=== PATIENT | female | born 1955 | race Caucasian/White ===

== ENCOUNTER 2022-08-27 16:19 | Observation (INO) ==
--- NOTE | 2022-08-27 16:22 | ED.PDOC ---
General ED Provider: Dr. MARLENE MADISON MD Chief Complaint: Abnormal Labs Stated Complaint: Patient was seen today for routine medical encounter and laboratory studies. Her hemoglobin return at 5.4. She has no complaints. Denies melena or hematochezia. Time Seen by Provider: 08/27/22 16:20 Primary Care Provider: TENZIN HEBERT MD Nursing and Triage Documentation Reviewed and Agree: Yes Does patient meet sepsis criteria?: No System Inflammatory Response Syndrome: Not Applicable Sepsis Protocol: For patient's 13 years and over: Temp is 96.8 and below OR 101 and greater Pulse >90 BPM Resp >20/minute Acutely Altered Mental Status Are patient's symptoms suggestive of a new infection, such as: -Pneumonia -Skin, Soft Tissue -Endocarditis -UTI -Bone, Joint Infection -Implantable Device -Acute Abdominal Infection -Wound Infection -Meningitis -Blood Stream Catheter Infection -Unknown Review of Systems Review Of Systems Constitutional: Reports No symptoms Eyes: Reports No symptoms Ears, Nose, Mouth, Throat: Reports No symptoms Respiratory: Reports No symptoms Cardiac: Reports No symptoms GI: Reports No symptoms : Reports No symptoms Musculoskeletal: Reports No symptoms Skin: Reports No symptoms Neurological: Reports No symptoms Endocrine: Reports No symptoms Hematologic/Lymphatic: Reports No symptoms All Other Systems: Reviewed and Negative [facility] Medical History Breast cancer in female Chronic obstructive pulmonary disease Subacute cough Family History Mother Adverse anesthesia outcome Cancer Hypertension FATHER Alcoholism Lipids abnormal Cancer SISTER Cancer Social History Smoking and tobacco status: Current every day smoker Quit status: considering quitting Alcohol intake: never Substance use type: marijuana Makayla/christianity: RASTAFARIAN Special makayla needs: No Agree to transfusion: Yes Adopted: No Caregiver/support person: No Foster care: No Household members: spouse and children Housing: house Lives independently: Yes Daycare: no daycare Number of children: 1 Number of grandchildren: 4 Highest education level completed: some college, no degree Financial difficulty paying for basics: not very hard service: No FDC: No Current occupational status: retired Current occupational exposures/hazards: No Pets and animals: No Leisure activites: music, games and other History of recent travel: No Sexually active: No Do you think of yourself as: straight/heterosexual Current gender identity: female Seatbelt use: always Helmet use: No Drives intoxicated or rides with intoxicated stacker driver: No Water heater temperature set < 120 degrees: Yes Working smoke detector in home: Yes Fire extinguisher in home: Yes Carbon monoxide detector in home: Yes Firearms in home: No Surgical History cervical shoulder Status post appendectomy Physical Exam Physical Exam Appearance: Reports No pain distress, Thin and Other (Patient is alert, oriented and in NAD. She is pale. Patient appears chronically ill and older than her stated age.) Ill-appearing: Mild Pain Distress: None Eyes: Reports Not Examined ENT: Reports Nose normal and Oropharynx normal Neck: Supple Respiratory: Reports Airway patent, Breath sounds clear, Breath sounds equal and Breath sounds diminished Cardiovascular: Reports RRR, No rub and No murmur GI/: Reports Soft, Nontender, No masses, Bowel sounds normal, No Organomegaly and Other (Rectal vault empty. Small amount of brown colored stool submitted for HOC. No palpable abnormality.) Musculoskeletal: Reports Normal strength, ROM intact and No edema Skin: Reports Warm, Dry and Pale Neurological: Reports Alert and Oriented Psychiatric: Reports Affect appropriate and Mood appropriate Critical Care Note Critical Care Note Total Critical Care Time (mins): 0 Course Course Hematology/Chemistry: 08/27/22 16:37 08/27/22 16:37 Orders, Labs, Meds: Lab Review 08/27/22 08/27/22 08/27/22 16:37 16:37 16:37 WBC 5.00 RBC 2.97 L Hgb 5.7 L* Hct 20.7 L MCV 69.7 L MCH 19.2 L MCHC 27.5 L RDW Coeff of Tracee 21.3 H Plt Count 264 Immature Gran % (Auto) 0.4 Neut % (Auto) 61.4 Lymph % (Auto) 25.2 [place] % (Auto) 8.8 Eos % (Auto) 2.8 Baso % (Auto) 1.4 Neut # (Auto) 3.1 Lymph # (Auto) 1.3 [place] # (Auto) 0.4 Eos # (Auto) 0.1 Baso # (Auto) 0.1 Immature Gran # (Auto) 0.0 Hypochromasia 2+ Anisocytosis 3+ Microcytosis 1+ Sodium 136.1 Potassium 4.18 Chloride 107.9 H Carbon Dioxide 21.0 L Anion Gap 11.38 BUN 18.3 H Creatinine 0.74 Estimated GFR (MDRD) 79.00 BUN/Creatinine Ratio 24.72 Glucose 100.2 Calcium 8.84 Iron 18.1 L TIBC 541 H % Saturation 3 Total Bilirubin 0.39 AST 23.7 ALT 13.8 Alkaline Phosphatase 114.3 Total Protein 7.87 Albumin 4.70 Globulin 3.17 Albumin/Globulin Ratio 1.48 Stl Occult Blood (IFOB) Stool Occult Blood #2 Stool Occult Blood #3 08/27/22 16:56 WBC RBC Hgb Hct MCV MCH MCHC RDW Coeff of Tracee Plt Count Immature Gran % (Auto) Neut % (Auto) Lymph % (Auto) [place] % (Auto) Eos % (Auto) Baso % (Auto) Neut # (Auto) Lymph # (Auto) [place] # (Auto) Eos # (Auto) Baso # (Auto) Immature Gran # (Auto) Hypochromasia Anisocytosis Microcytosis Sodium Potassium Chloride Carbon Dioxide Anion Gap BUN Creatinine Estimated GFR (MDRD) BUN/Creatinine Ratio Glucose Calcium Iron TIBC % Saturation Total Bilirubin AST ALT Alkaline Phosphatase Total Protein Albumin Globulin Albumin/Globulin Ratio Stl Occult Blood (IFOB) Negative Stool Occult Blood #2 Pending Stool Occult Blood #3 Pending Orders Category Date Time Status CBC W/ AUTO DIFF Stat LAB 08/27/22 16:37 Completed CMP [COMPREHENSIVE METABOLIC PANEL] Stat LAB 08/27/22 16:37 Completed IRON AND TIBC Stat LAB 08/27/22 16:37 Completed OCCULT BLOOD, STOOL Stat LAB 08/27/22 16:56 Results RBC MORPHOLOGY Stat LAB 08/27/22 16:37 Completed TYPE AND SCREEN Stat LAB 08/27/22 16:37 Received URINALYSIS C & S IF INDICATED Stat LAB 08/27/22 16:22 Uncollected Vital Signs: Temp Pulse Resp BP Pulse Ox 08/27/22 16:19 98.0 F 92 16 126/73 100 Discharge Plan Discharge Patient Disposition: PLACED OBSERVATION Discharge Problem: Iron deficiency anemia Prescriptions: No Action cetirizine [Zyrtec] 10 mg tablet 10 mg PO QDAY Qty: 90 0RF rosuvastatin 10 mg tablet 10 mg PO QDAY Qty: 90 2RF losartan 50 mg tablet 50 mg PO QDAY Qty: 90 2RF Rx Instructions: needs appt and labs diphenhydramine-acetaminophen [Tylenol PM Extra Strength] 25-500 mg tablet 1 tab PO QHS PRN (Reason: Pain) fluticasone propionate 50 mcg/actuation spray,suspension 1 spray intranasal BID Qty: 15.8 3RF Rx Instructions: administer into each nostril albuterol sulfate [ProAir HFA] 90 mcg/actuation HFA aerosol inhaler 2 puff inhalation .q 4 hour PRN (Reason: cough) Qty: 18 2RF Atrovent HFA 17 mcg/actuation HFA aerosol inhaler 2 puff inhalation Q8H Qty: 12.9 1RF Did you review [place] CURING BIN OPERATOR for ALL controlled substances?: Not Applicable ED Provider: MARLENE MADISON Condition: Stable Physician Progress Note: []
[2022-08-27 16:58] LABS: BASOPHILS # (AUTO) 0.1 K/uL (0-0.2); BASOPHILS % (AUTO) 1.4 % (0.0-3.0); EOSINOPHILS # (AUTO) 0.1 K/ul (0.0-0.7); EOSINOPHILS % (AUTO) 2.8 % (0.0-7.0); HEMATOCRIT 20.7 % (37.0-47.0); IMMATURE GRANULOCYTE % (AUTO) 0.4 % (0.0-5.0); LYMPHOCYTES # (AUTO) 1.3 K/uL (0.60-3.4); LYMPHOCYTES % (AUTO) 25.2 (10.0-50.0); MEAN CORPUSCULAR HEMOGLOBIN 19.2 pg (27.0-31.0); MEAN CORPUSCULAR HGB CONC 27.5 (31.8-35.4); MEAN CORPUSCULAR VOLUME 69.7 fl (81.0-99.0); MONOCYTES # (AUTO) 0.4 K/uL (0.4-2.0); MONOCYTES % (AUTO) 8.8 (0-10); NEUTROPHILS # (AUTO) 3.1 K/ul (2.0-6.9); NEUTROPHILS % (AUTO) 61.4 % (42.2-75.2); PLATELET COUNT 264 10^3/uL (140-440); RDW COEFFICIENT OF VARIATION 21.3 % (11.6-14.8); RED BLOOD COUNT 2.97 10^6/ul (4.20-5.40)
[2022-08-27 17:03] LABS: ALANINE AMINOTRANSFERASE 13.8 U/L (0-35); ALBUMIN 4.7 g/dL (3.5-5.0); ALKALINE PHOSPHATASE 114.3 U/L (53-141); ASPARTATE AMINO TRANSFERASE 23.7 U/L (14-36); BILIRUBIN,TOTAL 0.39 mg/dL (0.2-1.3); BLOOD UREA NITROGEN 18.3 mg/dL (7-17); CALCIUM 8.84 mg/dL (8.4-10.2); CHLORIDE 107.9 mmol/L (98-107); CREATININE 0.74 mg/dL (0.60-1.30); GLUCOSE 100.2 mg/dL (74-106); POTASSIUM 4.18 mmol/L (3.5-5.1); SODIUM 136.1 mmol/L (134.5-145); TOTAL PROTEIN 7.87 g/dL (6.3-8.2)
[2022-08-27 17:04] LABS: HEMOGLOBIN 5.7 g/dl (12.0-16.0)
[2022-08-27 17:05] LABS: ANISOCYTOSIS 3+ (NOT PRESENT); HYPOCHROMASIA 2+ (NOT PRESENT)
[2022-08-27 17:06] LABS: MICROCYTOSIS 1+ (NOT PRESENT)
[2022-08-27 17:15] LABS: IRON 18.1 ug/dL (37-170)
[2022-08-27 17:16] LABS: OCCULT BLOOD SAMPLE 1 NEGATIVE (NEGATIVE)
--- NOTE | 2022-08-27 17:34 | PCM ---
Chief Complaint Chief Complaint: low hemoglobin History of Present Illness History of Present Illness: Patient seen today for routine encounter and labs. Her hemoglobin returned 5.4. She is asymptomatic with regard to the anemia. Patient denies abdominal pain, melena, constipation or hematochezia. Review of Systems Constitutional: Reports No symptoms Eyes: Reports No symptoms Ears: Reports No symptoms Nose: Reports No symptoms Throat: Reports No symptoms Mouth: Reports No symptoms Respiratory: Reports No symptoms Cardiovascular: Reports No symptoms Gastrointestinal: Reports No symptoms Genitourinary: Reports No symptoms Neurological: Reports No symptoms Musculoskeletal: Reports No symptoms Skin: Reports No symptoms Immunology: Reports No symptoms Hematology: Reports No symptoms Endocrine: Reports No symptoms Psychiatric: Reports No symptoms Habits: Reports Tobacco use Allergies Allergies Allergy/AdvReac Type Severity Reaction Status Date / Time No Known Allergies Allergy Verified 08/27/22 16:27 [facility] Medical History (Updated 08/27/22 @ 17:32 by MARLENE MADISON MD) Breast cancer in female Chronic obstructive pulmonary disease Subacute cough Surgical History cervical shoulder Status post appendectomy Family History Mother Adverse anesthesia outcome Cancer Hypertension FATHER Alcoholism Lipids abnormal Cancer SISTER Cancer Social History Smoking and tobacco status: Current every day smoker Quit status: considering quitting Alcohol intake: never Substance use type: marijuana Makayla/methodist: HOAHAOISM Special makayla needs: No Agree to transfusion: Yes Adopted: No Caregiver/support person: No Foster care: No Household members: spouse and children Housing: house Lives independently: Yes Daycare: no daycare Number of children: 1 Number of grandchildren: 4 Highest education level completed: some college, no degree Financial difficulty paying for basics: not very hard service: No correction: No Current occupational status: retired Current occupational exposures/hazards: No Pets and animals: No Leisure activites: music, games and other History of recent travel: No Sexually active: No Do you think of yourself as: straight/heterosexual Current gender identity: female Seatbelt use: always Helmet use: No Drives intoxicated or rides with intoxicated driver's license reviewing officer: No Water heater temperature set < 120 degrees: Yes Working smoke detector in home: Yes Fire extinguisher in home: Yes Carbon monoxide detector in home: Yes Firearms in home: No Body Composition Height: 5 ft 3 in Weight: 65.317 kg Body Mass Index (BMI): 25.4 Vital Signs Temperature: 98.0 F Pulse Rate: 92 Respiratory Rate: 16 Blood Pressure: 126/73 O2 Sat by Pulse Oximetry: 100 Physical Examination Appearance: Reports Well-appearing, No pain distress and Thin Ill-appearing: None Pain Distress: None Eyes: Reports ALYSHA and EOMI ENT: Reports Nose normal and Oropharynx normal Neck: Supple Respiratory: Reports Airway patent, Breath sounds clear, Breath sounds equal and Breath sounds diminished Cardiovascular: Reports RRR, No rub and No murmur GI/: Reports Soft, Nontender, No masses, Bowel sounds normal, No Organomegaly and Other (Rectal vault empty. No palpable abnormality.) Musculoskeletal: Reports Normal strength, ROM intact and No edema Skin: Reports Warm, Dry and Pale Neurological: Reports Sensation intact, Motor intact, Alert and Oriented Psychiatric: Reports Affect appropriate and Mood appropriate Lab/Tests/Diagnostic Imaging Lab/Tests/Diagnostic Imaging: Lab Review 08/27/22 08/27/22 08/27/22 16:37 16:37 16:37 WBC 5.00 RBC 2.97 L Hgb 5.7 L* Hct 20.7 L MCV 69.7 L MCH 19.2 L MCHC 27.5 L RDW Coeff of Tracee 21.3 H Plt Count 264 Immature Gran % (Auto) 0.4 Neut % (Auto) 61.4 Lymph % (Auto) 25.2 [place] % (Auto) 8.8 Eos % (Auto) 2.8 Baso % (Auto) 1.4 Neut # (Auto) 3.1 Lymph # (Auto) 1.3 [place] # (Auto) 0.4 Eos # (Auto) 0.1 Baso # (Auto) 0.1 Immature Gran # (Auto) 0.0 Hypochromasia 2+ Anisocytosis 3+ Microcytosis 1+ Sodium 136.1 Potassium 4.18 Chloride 107.9 H Carbon Dioxide 21.0 L Anion Gap 11.38 BUN 18.3 H Creatinine 0.74 Estimated GFR (MDRD) 79.00 BUN/Creatinine Ratio 24.72 Glucose 100.2 Calcium 8.84 Iron 18.1 L TIBC 541 H % Saturation 3 Total Bilirubin 0.39 AST 23.7 ALT 13.8 Alkaline Phosphatase 114.3 Total Protein 7.87 Albumin 4.70 Globulin 3.17 Albumin/Globulin Ratio 1.48 Stl Occult Blood (IFOB) Stool Occult Blood #2 Stool Occult Blood #3 08/27/22 16:56 WBC RBC Hgb Hct MCV MCH MCHC RDW Coeff of Tracee Plt Count Immature Gran % (Auto) Neut % (Auto) Lymph % (Auto) [place] % (Auto) Eos % (Auto) Baso % (Auto) Neut # (Auto) Lymph # (Auto) [place] # (Auto) Eos # (Auto) Baso # (Auto) Immature Gran # (Auto) Hypochromasia Anisocytosis Microcytosis Sodium Potassium Chloride Carbon Dioxide Anion Gap BUN Creatinine Estimated GFR (MDRD) BUN/Creatinine Ratio Glucose Calcium Iron TIBC % Saturation Total Bilirubin AST ALT Alkaline Phosphatase Total Protein Albumin Globulin Albumin/Globulin Ratio Stl Occult Blood (IFOB) Negative Stool Occult Blood #2 Pending Stool Occult Blood #3 Pending Orders Category Date Time Status CBC W/ AUTO DIFF Stat LAB 08/27/22 16:37 Completed CMP [COMPREHENSIVE METABOLIC PANEL] Stat LAB 08/27/22 16:37 Completed IRON AND TIBC Stat LAB 08/27/22 16:37 Completed OCCULT BLOOD, STOOL Stat LAB 08/27/22 16:56 Results RBC MORPHOLOGY Stat LAB 08/27/22 16:37 Completed TYPE AND SCREEN Stat LAB 08/27/22 16:37 Received URINALYSIS C & S IF INDICATED Stat LAB 08/27/22 16:22 Uncollected Assessment (1) Iron deficiency anemia: Status: Acute Code(s): D50.9 - Iron deficiency anemia, unspecified SNOMED Code(s): 99211179 Assessment: Admission hemoglobin level was 5.4. Patient will require further evaluation to determine the etiology of her anemia. Will place on iron supplement. Transfuse PRBCs. (2) Chronic obstructive pulmonary disease: Status: Acute Code(s): J44.9 - Chronic obstructive pulmonary disease, unspecified SNOMED Code(s): 57179474 (3) Essential hypertension: Status: Acute Code(s): I10 - Essential (primary) hypertension SNOMED Code(s): 13362901 Plan Plan: Transfuse PRBCs. Iron supplement.
[2022-08-27] MEDS ORDERED: PROAIR HFA (SINGLE PATIENT USE) IH PRN (17:49)
[2022-08-27] MEDS ORDERED: BENADRYL PO PRN (17:54)
[2022-08-27] MEDS ORDERED: ATROVENT HFA INHALER (SINGLE PATIENT USE) IH SCH ×2 (18:00→21:30)
[2022-08-27] MEDS ORDERED: LIDOCAINE HCL 1% SDV SUBCUT STA (18:05)
[2022-08-27] MEDS ORDERED: VENTOLIN HFA (PER PUFF-WITH SPACER) IH PRN ×2 (18:23→21:19)
[2022-08-27] MEDS: ATROVENT HFA INHALER (PER PUFF-WITH SPACER) IH SCH ×2 (18:33→21:10)
[2022-08-27 18:36] LABS: BILIRUBIN,URINE Negative (NEGATIVE); CLARITY,URINE Clear (CLEAR); COLOR,URINE Yellow (YELLOW); GLUCOSE, URINE (UA) Negative (NEGATIVE); KETONES,URINE Negative (NEGATIVE); LEUKOCYTE ESTERASE ,URINE 1+ (NEGATIVE); NITRITE,URINE Negative (NEGATIVE); PH,URINE 5.5 (5-9); PROTEIN,URINE Negative (NEGATIVE); URINE, BLOOD Negative (NEGATIVE); UROBILINOGEN,URINE 0.2 (0.2)
[2022-08-27 18:38] LABS: BACTERIA,URINE 1+ (NOT PRESENT)
[2022-08-27 18:41] LABS: SARS COV-2 RNA RAPID NAAT NEGATIVE (NEGATIVE)
[2022-08-27] MEDS: LEVAQUIN 750 MG/150 ML D5W 750 MG/150 ML BAG IV SCH (18:53)
[2022-08-27 20:57] VITALS: BMI 25.0
[2022-08-27] MEDS ORDERED: NON-FORMULARY MEDICATION (Diphenhydramine-Acetaminophen [Tylenol Pm Extra Strength] 25-500 PO PRN (21:19)
[2022-08-27] MEDS ORDERED: COZAAR PO SCH (21:30)
[2022-08-27] MEDS ORDERED: CRESTOR PO SCH (21:30)
[2022-08-27] MEDS ORDERED: ATROVENT HFA INHALER (PER PUFF-WITH SPACER) IH SCH (22:00)
[2022-08-27] MEDS: NICODERM 21 MG TD SCH (22:27)
[2022-08-28 04:37] LABS: BASOPHILS # (AUTO) 0.1 K/uL (0-0.2); BASOPHILS % (AUTO) 1.1 % (0.0-3.0); EOSINOPHILS # (AUTO) 0.1 K/ul (0.0-0.7); EOSINOPHILS % (AUTO) 2.6 % (0.0-7.0); HEMATOCRIT 27.5 % (37.0-47.0); HEMOGLOBIN 8.1 g/dl (12.0-16.0); IMMATURE GRANULOCYTE % (AUTO) 0.4 % (0.0-5.0); LYMPHOCYTES # (AUTO) 1.1 K/uL (0.60-3.4); LYMPHOCYTES % (AUTO) 20.8 (10.0-50.0); MEAN CORPUSCULAR HEMOGLOBIN 22.1 pg (27.0-31.0); MEAN CORPUSCULAR HGB CONC 29.5 (31.8-35.4); MEAN CORPUSCULAR VOLUME 75.1 fl (81.0-99.0); MONOCYTES # (AUTO) 0.6 K/uL (0.4-2.0); MONOCYTES % (AUTO) 11.1 (0-10); NEUTROPHILS # (AUTO) 3.5 K/ul (2.0-6.9); PLATELET COUNT 201 10^3/uL (140-440); RDW COEFFICIENT OF VARIATION 22.3 % (11.6-14.8); RED BLOOD COUNT 3.66 10^6/ul (4.20-5.40); WHITE BLOOD COUNT 5.49 K/ul (4.6-10.2)
[2022-08-28 04:49] LABS: ALANINE AMINOTRANSFERASE 12.4 U/L (0-35); ASPARTATE AMINO TRANSFERASE 24.3 U/L (14-36); BILIRUBIN,TOTAL 0.45 mg/dL (0.2-1.3); BLOOD UREA NITROGEN 15.3 mg/dL (7-17); CALCIUM 8.6 mg/dL (8.4-10.2); CARBON DIOXIDE 21.1 mmol/L (22-30.0); CHLORIDE 112.3 mmol/L (98-107); CREATININE 0.69 mg/dL (0.60-1.30); GLUCOSE 95.4 mg/dL (74-106); POTASSIUM 4.06 mmol/L (3.5-5.1); SODIUM 138.1 mmol/L (134.5-145); TOTAL PROTEIN 6.92 g/dL (6.3-8.2)
[2022-08-28 05:00] LABS: ANISOCYTOSIS 1+ (NOT PRESENT); HYPOCHROMASIA 1+ (NOT PRESENT)
[2022-08-28 05:01] LABS: SPHEROCYTES 1+ (NOT PRESENT)
[2022-08-28] MEDS: ATROVENT HFA INHALER (PER PUFF-WITH SPACER) IH SCH ×3 (05:19→21:01)
[2022-08-28] MEDS ORDERED: BENADRYL PO PRN (07:30)
[2022-08-28] MEDS: FLONASE NAS SCH ×2 (08:14→21:41)
[2022-08-28] MEDS: COZAAR PO SCH (08:14)
[2022-08-28] MEDS: CLARITIN PO SCH (08:14)
[2022-08-28] MEDS: LEVAQUIN 750 MG/150 ML D5W 750 MG/150 ML BAG IV SCH (08:15)
[2022-08-28] MEDS: NICODERM 21 MG TD SCH (08:15)
[2022-08-28] MEDS ORDERED: ZYRTEC PO SCH (09:00)
[2022-08-28] MEDS ORDERED: VENOFER 300 MG in SODIUM CHLORIDE 250 ML IV ONE (09:55)
--- NOTE | 2022-08-28 09:59 | PCM.PROG ---
Date Seen by Provider: 08/28/22 Time Seen by Provider: 09:57 Subjective: i feel better--no new nursing staff concerns--she denies any melena Objective: Vitals: T=98.2 F, P=75, R=16, EZ=479/83, SPO2=98 HEENT: [] Neck: [supple] Lungs: [clear] CVS: [rrr] Abdomen: soft nt[] Extremities: [] Neurological: [intact] Skin: [] Lab/Tests/Diagnostic Imaging: [] (1) Iron deficiency anemia: Status: Acute Code(s): D50.9 - Iron deficiency anemia, unspecified SNOMED Code(s): 62846996 (2) Chronic obstructive pulmonary disease: Status: Acute Code(s): J44.9 - Chronic obstructive pulmonary disease, unspecified SNOMED Code(s): 66325052 (3) Essential hypertension: Status: Acute Code(s): I10 - Essential (primary) hypertension SNOMED Code(s): 84395292 Plan: she states sheis feeling better---note iron and iron stores---will give iron today--check cbc in am--?home tomorrow?
[2022-08-29 05:10] VITALS: TEMP 97.3
[2022-08-29 05:15] VITALS: BP 125/71
[2022-08-29 05:34] LABS: BASOPHILS # (AUTO) 0.1 K/uL (0-0.2); BASOPHILS % (AUTO) 1.2 % (0.0-3.0); EOSINOPHILS # (AUTO) 0.2 K/ul (0.0-0.7); EOSINOPHILS % (AUTO) 3.4 % (0.0-7.0); HEMATOCRIT 27.9 % (37.0-47.0); HEMOGLOBIN 8.3 g/dl (12.0-16.0); IMMATURE GRANULOCYTE % (AUTO) 0.3 % (0.0-5.0); LYMPHOCYTES # (AUTO) 1.3 K/uL (0.60-3.4); LYMPHOCYTES % (AUTO) 21.5 (10.0-50.0); MEAN CORPUSCULAR HEMOGLOBIN 21.9 pg (27.0-31.0); MEAN CORPUSCULAR HGB CONC 29.7 (31.8-35.4); MEAN CORPUSCULAR VOLUME 73.6 fl (81.0-99.0); MONOCYTES # (AUTO) 0.7 K/uL (0.4-2.0); MONOCYTES % (AUTO) 11.4 (0-10); NEUTROPHILS # (AUTO) 3.6 K/ul (2.0-6.9); NEUTROPHILS % (AUTO) 62.2 % (42.2-75.2); PLATELET COUNT 215 10^3/uL (140-440); RDW COEFFICIENT OF VARIATION 22.3 % (11.6-14.8); RED BLOOD COUNT 3.79 10^6/ul (4.20-5.40); WHITE BLOOD COUNT 5.81 K/ul (4.6-10.2)
[2022-08-29] MEDS: ATROVENT HFA INHALER (PER PUFF-WITH SPACER) IH SCH (05:47)
[2022-08-29 05:49] LABS: BLOOD UREA NITROGEN 7.3 mg/dL (7-17); CALCIUM 8.88 mg/dL (8.4-10.2); CARBON DIOXIDE 21.7 mmol/L (22-30.0); CHLORIDE 112.6 mmol/L (98-107); CREATININE 0.59 mg/dL (0.60-1.30); GLUCOSE 98.3 mg/dL (74-106); POTASSIUM 3.69 mmol/L (3.5-5.1); SODIUM 139.8 mmol/L (134.5-145)
[2022-08-29 05:50] LABS: HYPOCHROMASIA 1+ (NOT PRESENT)
[2022-08-29 05:51] LABS: ANISOCYTOSIS 1+ (NOT PRESENT)
--- NOTE | 2022-08-29 07:37 | PCM.PROG ---
Date Seen by Provider: 08/29/22 Time Seen by Provider: 07:35 Subjective: she denies any melena---no nursing staff concerns Objective: Vitals: T=97.3 F, P=77, R=18, ZN=188/71, SPO2=95 HEENT: [] Neck: [supple] Lungs: [clear] CVS: [rrr] Abdomen: [soft nt] Extremities: [] Neurological: iontact Skin: [] Lab/Tests/Diagnostic Imaging: [] (1) Iron deficiency anemia: Status: Acute Code(s): D50.9 - Iron deficiency anemia, unspecified SNOMED Code(s): 56559741 (2) Chronic obstructive pulmonary disease: Status: Acute Code(s): J44.9 - Chronic obstructive pulmonary disease, unspecified SNOMED Code(s): 75604270 (3) Essential hypertension: Status: Acute Code(s): I10 - Essential (primary) hypertension SNOMED Code(s): 70568756 Plan: her hgb is up to 8.3---i feel she is stable to see her pcp this week and pursue causes of her iron def anemia---will dicharge will oral iron and see dr fuchs this week
--- NOTE | 2022-08-29 07:40 | PCM.DC ---
Final Diagnosis: iron def anemia Physical Exam Appearance: Well-appearing Ill-appearing: None Pain Distress: None Eyes: ALYSHA, EOMI and Conjunctiva clear ENT: Ears normal, Nose normal and Oropharynx normal Neck: Supple Respiratory: Airway patent, Breath sounds clear and Breath sounds equal Cardiovascular: RRR, Pulses normal, No rub and No murmur GI/: Soft, Nontender, No masses and Bowel sounds normal Musculoskeletal: Normal strength, ROM intact and No edema Skin: Warm, Dry and Normal color Neurological: Sensation intact, Motor intact, Reflexes intact, Cranial nerves intact, Alert and Oriented Psychiatric: Affect appropriate and Mood appropriate (1) Iron deficiency anemia: Status: Acute Code(s): D50.9 - Iron deficiency anemia, unspecified SNOMED Code(s): 80995910 (2) Chronic obstructive pulmonary disease: Status: Acute Code(s): J44.9 - Chronic obstructive pulmonary disease, unspecified SNOMED Code(s): 53357547 (3) Essential hypertension: Status: Acute Code(s): I10 - Essential (primary) hypertension SNOMED Code(s): 89371729 Reason for Hospitalization: profound anemia Prognosis/Condition at Discharge: fair Medications at Discharge: home meds plus fe so4 325 bid Lab/Diagnostics: hbg up to 8.3 Follow-ups: see dr fuchs this week Discharge Disposition: Home Hospital Course: she did well during her hospitalization---no dark stools... stool for occult blood is negative---she denies any sob or cough Plan: discharge home with oral iron---follow up with dr fuchs this week
[2022-08-29] MEDS: FLONASE NAS SCH (08:11)
[2022-08-29] MEDS: LEVAQUIN 750 MG/150 ML D5W 750 MG/150 ML BAG IV SCH (08:11)
[2022-08-29] MEDS: COZAAR PO SCH (08:13)
[2022-08-29] MEDS: CLARITIN PO SCH (08:13)
[2022-08-29] MEDS: NICODERM 21 MG TD SCH (08:14)
== END 2022-08-29 10:40 | disposition home or self-care (01) ==
LOC: ED 16:19 → MEDSURG A 16:19
PROVIDERS: ADMIT Surgery; ATTEND Family Medicine
DX: F17.210 Nicotine dependence, cigarettes, uncomplicated; I10 Essential (primary) hypertension; R05.2 Subacute cough; D50.9 Iron deficiency anemia, unspecified; K76.89 Other specified diseases of liver; Z20.822 Contact with and (suspected) exposure to COVID-19; Z85.3 Personal history of malignant neoplasm of breast; J44.9 Chronic obstructive pulmonary disease, unspecified; N39.0 Urinary tract infection, site not specified; B96.20 Unspecified Escherichia coli [E. coli] as the cause of diseases classified elsewhere; Z51.81 Encounter for therapeutic drug level monitoring; Z79.899 Other long term (current) drug therapy; F12.90 Cannabis use, unspecified, uncomplicated; E78.5 Hyperlipidemia, unspecified; D53.8 Other specified nutritional anemias